=== PATIENT | female | born 1975 | race Hispanic/Latino ===

== ENCOUNTER 2022-03-13 09:06 | Inpatient (IN) | payer MEDICARE, OTHER ==
[2022-03-13 09:46] LABS: Actual Bicarbonate (HCO3v) 18 mEq/L (22-28); Analyzer IN Cardio ER; Base Excess -6.1 mEq/L (-2.0 to +3.0); Calcium, Ionized (venous) 0.86 mmol/L (1.16-1.32); Chloride (VBG) 107 mmol/L (98-106); Hemoglobin (Hb) 9.9 g/dL (11.7-16.0); Potassium (VBG) 5.01 mmol/L (3.70-5.30); Sodium 132.3 mmol/L (133-146)
[2022-03-13 10:03] LABS: #Basophils 0.1 thou/uL (0.0-0.2); #Eosinphils 0.1 thou/uL (0.0-0.7); #Lymphocytes 2.2 thou/uL (1.20-3.40); #Monocytes 1.4 thou/uL (0.11-0.59); #Neutrophils 9.1 thou/uL (1.40-6.50); %Basophils 0.4 % (0.0-1.0); %Eosinophils 0.8 % (0.0-10.0); %Lymphocytes 17.2 % (21.0-51.0); %Neutrophils 70.6 % (42.0-75.0); Hemoglobin 9.1 g/dL (12.0-16.0); Mean Corpuscular HGB CONC 33.5 g/dL (32.0-36.0); Mean Corpuscular Volume 89.7 fL (78.0-98.0); Platelet Count 297 thou/uL (130-400); RBC Distribution Width 13.8 % (11.5-14.5); Red Blood Cell (RBC) Count 3.03 mill/uL (4.20-5.40); White Blood Cell (WBC) Count 12.9 thou/uL (4.8-10.8)
[2022-03-13] MEDS ORDERED: cefTRIAXone\\ROCEPHIN 1 GM VIAL ONE (10:10)
[2022-03-13] MEDS ORDERED: Furosemide 40 MG/4 ML VIAL ONE (10:10)
[2022-03-13 10:28] LABS: ALT (SGPT) 11 U/L (8-55); AST (SGOT) 18 U/L (5-34); Albumin 3.4 g/dL (3.5-5.0); Alkaline Phosphatase 115 U/L (40-110); Anion Gap 17 mmol/L (10-20); BUN (Urea Nitrogen) 70 mg/dL (7.0-18.7); Bilirubin, Total 0.9 mg/dL (0.2-1.2); Calc. Creatinine Clearance 0 mL/min (70-130); Calcium 6.9 mg/dL (7.8-10.44); Carbon Dioxide 15 mmol/L (22-29); Chloride 106 mmol/L (98-107); Estimated GFR 9; Globulin 3.6 g/dL (2.4-3.5); Glucose 175 mg/dL (70-105); Sodium 133 mmol/L (136-145)
[2022-03-13 10:53] LABS: CKMB 1.1 ng/mL (0-6.6)
[2022-03-13 11:34] LABS: SARS-CoV-2 NAA Rapid Test Not Detected (NotDetected)
[2022-03-13] MEDS ORDERED: Aspirin Chewable 81 MG TAB ONE (14:41)
[2022-03-13] MEDS ORDERED: Insulin Regular 300 UNITS/3 ML VIAL SC PRN ×2 (15:33→15:41)
[2022-03-13] MEDS ORDERED: Calcium Carbonate 500 MG ChewTAB PO PRN (15:38)
[2022-03-13] MEDS ORDERED: Dextrose 5% in Water 1,000 ML IV PRN (15:41)
[2022-03-13] MEDS ORDERED: Dextrose 50% Abboject 50 ML SYRINGE SLOW IVP PRN (15:41)
[2022-03-13] MEDS ORDERED: Ondansetron PF 4 MG/2 ML Vial IVP PRN (15:45)
[2022-03-13] MEDS ORDERED: Acetaminophen 325 MG TAB PO PRN (15:45)
[2022-03-13] MEDS ORDERED: Ondansetron ODT 4 MG TAB SL PRN (15:45)
[2022-03-13] MEDS ORDERED: Cefepime 1 GM in Sodium Chloride 0.9% 100 ML IVPB SCH (16:00)
[2022-03-13 16:14] VITALS: BMI 45.8
[2022-03-13] MEDS ORDERED: Sodium Bicarbonate 150 MEQ in Sterile Water Injection 1,000 ML IV SCH (17:00)
[2022-03-13] MEDS ORDERED: Sodium Chloride 0.9% 500 ML IV SCH (17:15)
[2022-03-13 18:03] LABS: Anion Gap 18 mmol/L (10-20); BUN (Urea Nitrogen) 72 mg/dL (7.0-18.7); Calc. Creatinine Clearance 25 mL/min (70-130); Carbon Dioxide 15 mmol/L (22-29); Chloride 106 mmol/L (98-107); Estimated GFR 9; Glucose 158 mg/dL (70-105); Potassium 5.1 mmol/L (3.5-5.1); Sodium 134 mmol/L (136-145)
[2022-03-13 18:08] LABS: Troponin I 0.128 ng/mL (< 0.028)
[2022-03-13] MEDS ORDERED: hydrALAZINE 20 MG/ML VIAL SLOW IVP PRN (18:58)
[2022-03-13] MEDS: Carvedilol 6.25 MG TAB PO SCH (20:28)
[2022-03-13] MEDS: Calcium Carbonate 500 MG ChewTAB PO SCH (20:28)
[2022-03-13] MEDS: Doxycycline 100 MG CAP PO SCH (20:28)
[2022-03-13] MEDS: Heparin 5,000 UNITS/ML VIAL SC SCH (20:29)
[2022-03-13] MEDS: Escitalopram Oxalate 10 mg Tablet PO SCH (20:29)
[2022-03-13] MEDS ORDERED: Sodium Bicarbonate Tab 325 MG TAB PO SCH (21:00)
[2022-03-13] MEDS ORDERED: Famotidine 20 MG TAB PO SCH (21:00)
[2022-03-13 23:53] LABS: Bilirubin Negative (Negative); Blood, Urine Negative (Negative); Clarity Turbid (Clear); Glucose, Urine (Dipstick) Normal (Negative); Ketone, Urine Negative (Negative); Leukocyte Negative Leu/uL (Negative); Nitrite Negative (Negative); Protein, Urine (Dipstick) 200 mg/dL (Neg-Trace); Specific Gravity, Urine 1.013 (1.002-1.036); Urobilinogen Normal mg/dL (Less than 2); pH, Urine 5.5 (5.0-9.0)
[2022-03-14] LABS: Legionella Urinary Ag Negative (Negative); Strep pneumo Urine Ag NEGATIVE (NEGATIVE)
[2022-03-14 00:01] LABS: Yeast-Budding 2+ HPF (None Seen)
[2022-03-14 00:02] LABS: Bacteria/HPF 3+ HPF (None Seen)
[2022-03-14 00:03] LABS: RBC/HPF 0-3 HPF (0-3)
[2022-03-14 00:04] LABS: Urine Culture Reflex No No
[2022-03-14 00:08] LABS: Creatinine, Urine 85.9 mg/dL (47-110)
[2022-03-14 04:16] LABS: Albumin 3.1 g/dL (3.5-5.0); Anion Gap 18 mmol/L (10-20); BUN (Urea Nitrogen) 77 mg/dL (7.0-18.7); CRP (Inflammatory) 10.18 mg/dL (= or < 0.5); Calc. Creatinine Clearance 25 mL/min (70-130); Calcium 6.9 mg/dL (7.8-10.44); Carbon Dioxide 16 mmol/L (22-29); Chloride 106 mmol/L (98-107); Estimated GFR 9; Glucose 124 mg/dL (70-105); Phosphorus 6.1 mg/dL (2.3-4.7); Potassium 4.8 mmol/L (3.5-5.1); Sodium 135 mmol/L (136-145)
[2022-03-14 04:32] LABS: #Basophils 0.1 thou/uL (0.0-0.2); #Eosinphils 0.5 thou/uL (0.0-0.7); #Lymphocytes 2.3 thou/uL (1.20-3.40); #Neutrophils 5.7 thou/uL (1.40-6.50); %Basophils 0.9 % (0.0-1.0); %Eosinophils 5.6 % (0.0-10.0); %Lymphocytes 23.7 % (21.0-51.0); %Monocytes 10.2 % (0.0-10.0); %Neutrophils 59.7 % (42.0-75.0); Hemoglobin 8.7 g/dL (12.0-16.0); Mean Corpuscular HGB CONC 33.4 g/dL (32.0-36.0); Mean Corpuscular Hemoglobin 29.8 pg (27.0-31.0); Mean Corpuscular Volume 89.4 fL (78.0-98.0); Mean Platelet Volume 8.1 fL (7.4-10.4); Platelet Count 296 thou/uL (130-400); RBC Distribution Width 13.5 % (11.5-14.5); Red Blood Cell (RBC) Count 2.92 mill/uL (4.20-5.40); White Blood Cell (WBC) Count 9.5 thou/uL (4.8-10.8)
[2022-03-14] MEDS: Sevelamer Carbonate 800 MG TAB PO SCH ×3 (08:02→17:32)
[2022-03-14] MEDS: Doxycycline 100 MG CAP PO SCH ×2 (08:02→20:07)
[2022-03-14] MEDS: Aspirin 81 mg Enteric Coated Tablet PO SCH (08:03)
[2022-03-14] MEDS: Calcium Carbonate 500 MG ChewTAB PO SCH ×3 (08:03→20:07)
[2022-03-14] MEDS: Saccharomyces boulardii 250 MG CAP PO SCH (08:03)
[2022-03-14] MEDS: Carvedilol 6.25 MG TAB PO SCH ×2 (08:03→20:07)
[2022-03-14] MEDS: Heparin 5,000 UNITS/ML VIAL SC SCH ×2 (08:04→20:08)
[2022-03-14] MEDS: Sodium Bicarbonate 150 MEQ in Sterile Water Injection 1,000 ML IV SCH ×2 (08:48→20:06)
[2022-03-14] MEDS ORDERED: Ergocalciferol 1.25 MG(50,000 UNITS) CAP PO SCH (09:00)
[2022-03-14 11:19] LABS: Iron 39 ug/dL (50-170); Iron Binding Capacity, Total 180 mcg/dL (265-497)
[2022-03-14] MEDS: Cefepime 1 GM in Sodium Chloride 0.9% 100 ML IVPB SCH (13:43)
[2022-03-14] MEDS: Acetaminophen 325 MG TAB PO PRN ×2 (13:46→20:07)
[2022-03-14] MEDS ORDERED: Cefepime 1 GM in Sodium Chloride 0.9% 100 ML IVPB SCH (17:00)
[2022-03-14 18:53] LABS: Anion Gap 17 mmol/L (10-20); BUN (Urea Nitrogen) 75 mg/dL (7.0-18.7); Calc. Creatinine Clearance 26 mL/min (70-130); Calcium 6.8 mg/dL (7.8-10.44); Carbon Dioxide 20 mmol/L (22-29); Chloride 103 mmol/L (98-107); Estimated GFR 9; Glucose 130 mg/dL (70-105); Potassium 4.6 mmol/L (3.5-5.1); Sodium 135 mmol/L (136-145)
[2022-03-14] MEDS: Escitalopram Oxalate 10 mg Tablet PO SCH (20:07)
[2022-03-14 20:11] VITALS: BP 160/92
[2022-03-14] MEDS ORDERED: HYDROcodone/Acetaminophen 7.5/325 mg Tablet PO SCH (20:30)
[2022-03-15] MEDS: Cefepime 1 GM in Sodium Chloride 0.9% 100 ML IVPB SCH ×2 (01:06→15:24)
[2022-03-15] MEDS: Acetaminophen 325 MG TAB PO PRN ×2 (06:21→22:01)
[2022-03-15] MEDS: Saccharomyces boulardii 250 MG CAP PO SCH (07:26)
[2022-03-15] MEDS: Carvedilol 6.25 MG TAB PO SCH ×2 (07:27→21:59)
[2022-03-15] MEDS: Sevelamer Carbonate 800 MG TAB PO SCH ×3 (07:27→16:09)
[2022-03-15] MEDS: Doxycycline 100 MG CAP PO SCH ×2 (07:27→21:59)
[2022-03-15] MEDS: Aspirin 81 mg Enteric Coated Tablet PO SCH (07:27)
[2022-03-15] MEDS: Calcium Carbonate 500 MG ChewTAB PO SCH ×4 (07:28→22:09)
[2022-03-15] MEDS: Heparin 5,000 UNITS/ML VIAL SC SCH ×2 (07:28→21:59)
[2022-03-15 07:29] LABS: #Eosinphils 0.9 thou/uL (0.0-0.7); #Monocytes 0.7 thou/uL (0.11-0.59); #Neutrophils 4.1 thou/uL (1.40-6.50); %Basophils 0.4 % (0.0-1.0); %Eosinophils 11.1 % (0.0-10.0); %Lymphocytes 25.5 % (21.0-51.0); %Monocytes 9.2 % (0.0-10.0); %Neutrophils 53.8 % (42.0-75.0); Mean Corpuscular HGB CONC 33.5 g/dL (32.0-36.0); Mean Corpuscular Hemoglobin 29.8 pg (27.0-31.0); Platelet Count 289 thou/uL (130-400); RBC Distribution Width 13.7 % (11.5-14.5); Red Blood Cell (RBC) Count 2.68 mill/uL (4.20-5.40); White Blood Cell (WBC) Count 7.7 thou/uL (4.8-10.8)
[2022-03-15 07:46] LABS: Anion Gap 18 mmol/L (10-20); BUN (Urea Nitrogen) 70 mg/dL (7.0-18.7); BUN/Creatinine Ratio 13.89; Calc. Creatinine Clearance 28 mL/min (70-130); Calcium 6.5 mg/dL (7.8-10.44); Carbon Dioxide 21 mmol/L (22-29); Chloride 102 mmol/L (98-107); Estimated GFR 10; Glucose 128 mg/dL (70-105); Phosphorus 5.2 mg/dL (2.3-4.7); Potassium 4.4 mmol/L (3.5-5.1); Sodium 137 mmol/L (136-145)
[2022-03-15] MEDS ORDERED: Iron, Sodium Ferric Gluconate 250 MG in Sodium Chloride 0.9% 250 ML 250 ML IVPB SCH (08:15)
[2022-03-15] MEDS ORDERED: Epoetin (ESRD) 10,000 UNITS/ML VIAL SC SCH (09:00)
[2022-03-15] MEDS: Sodium Bicarbonate 150 MEQ in Sterile Water Injection 1,000 ML IV SCH ×2 (12:36→21:00)
[2022-03-15] MEDS: Cefdinir 300 MG CAP PO SCH (21:59)
[2022-03-15] MEDS: Escitalopram Oxalate 10 mg Tablet PO SCH (21:59)
[2022-03-15] MEDS ORDERED: Ondansetron PF 4 MG/2 ML Vial IVP PRN (23:47)
[2022-03-15] MEDS ORDERED: HYDROcodone/Acetaminophen 7.5/325 mg Tablet PO SCH (23:59)
[2022-03-16 04:02] LABS: #Eosinphils 0.7 thou/uL (0.0-0.7); #Lymphocytes 1.9 thou/uL (1.20-3.40); #Monocytes 0.7 thou/uL (0.11-0.59); #Neutrophils 4.9 thou/uL (1.40-6.50); %Basophils 0.4 % (0.0-1.0); %Eosinophils 8.5 % (0.0-10.0); %Lymphocytes 23.1 % (21.0-51.0); %Monocytes 8.5 % (0.0-10.0); %Neutrophils 59.5 % (42.0-75.0); Hemoglobin 8.1 g/dL (12.0-16.0); Mean Corpuscular HGB CONC 33.7 g/dL (32.0-36.0); Mean Corpuscular Hemoglobin 29.8 pg (27.0-31.0); Mean Corpuscular Volume 88.4 fL (78.0-98.0); Mean Platelet Volume 7.9 fL (7.4-10.4); Platelet Count 291 thou/uL (130-400); RBC Distribution Width 13.5 % (11.5-14.5); Red Blood Cell (RBC) Count 2.73 mill/uL (4.20-5.40); White Blood Cell (WBC) Count 8.2 thou/uL (4.8-10.8)
[2022-03-16 04:16] LABS: Albumin 3.1 g/dL (3.5-5.0); Anion Gap 11 mmol/L (10-20); BUN (Urea Nitrogen) 60 mg/dL (7.0-18.7); BUN/Creatinine Ratio 13.04; Calc. Creatinine Clearance 31 mL/min (70-130); Calcium 6.6 mg/dL (7.8-10.44); Carbon Dioxide 31 mmol/L (22-29); Chloride 98 mmol/L (98-107); Estimated GFR 11; Glucose 112 mg/dL (70-105); Phosphorus 4.8 mg/dL (2.3-4.7); Potassium 4.4 mmol/L (3.5-5.1); Sodium 136 mmol/L (136-145)
[2022-03-16] MEDS ORDERED: Sodium Chloride 0.9% 1,000 ML IV SCH (07:15)
[2022-03-16] MEDS: Sodium Bicarbonate 150 MEQ in Sterile Water Injection 1,000 ML IV SCH (08:22)
[2022-03-16] MEDS: Doxycycline 100 MG CAP PO SCH (08:54)
[2022-03-16] MEDS: Aspirin 81 mg Enteric Coated Tablet PO SCH (08:55)
[2022-03-16] MEDS: Cefdinir 300 MG CAP PO SCH (08:55)
[2022-03-16] MEDS: Calcium Carbonate 500 MG ChewTAB PO SCH ×2 (08:55→13:45)
[2022-03-16] MEDS: Saccharomyces boulardii 250 MG CAP PO SCH (08:55)
[2022-03-16] MEDS: Carvedilol 6.25 MG TAB PO SCH (08:55)
[2022-03-16] MEDS: Sevelamer Carbonate 800 MG TAB PO SCH ×2 (08:55→11:54)
[2022-03-16] MEDS: Heparin 5,000 UNITS/ML VIAL SC SCH (08:56)
[2022-03-16] MEDS ORDERED: Calcium Chloride 13.6 MEQ in Sodium Chloride 0.9% 100 ML IVPB SCH (12:45)
[2022-03-19 10:54] VITALS: TEMP 97.9
== END 2022-03-16 16:35 | disposition home or self-care (01) | DRG 871 ==
LOC: ERS 09:06 → IMCU/EMU 15:10
PROVIDERS: ADMIT Internal Medicine; ATTEND Internal Medicine
PROC: 3E03329 Introduction of Other Anti-infective into Peripheral Vein, Percutaneous Approach (ICD-10-PCS; principal; 2022-03-13)
PROC: 5A09357 Assistance with Respiratory Ventilation, Less than 24 Consecutive Hours, Continuous Positive Airway Pressure (ICD-10-PCS; 2022-03-13)
DX: A41.9 Sepsis, unspecified organism (principal); Z20.822 Contact with and (suspected) exposure to COVID-19; J18.9 Pneumonia, unspecified organism; J96.01 Acute respiratory failure with hypoxia; N18.5 Chronic kidney disease, stage 5; I12.0 Hypertensive chronic kidney disease with stage 5 chronic kidney disease or end stage renal disease; Z68.42 Body mass index [BMI] 45.0-49.9, adult; N17.9 Acute kidney failure, unspecified; E87.20 Acidosis, unspecified; E87.1 Hypo-osmolality and hyponatremia; E11.22 Type 2 diabetes mellitus with diabetic chronic kidney disease; E66.01 Morbid (severe) obesity due to excess calories; K21.9 Gastro-esophageal reflux disease without esophagitis; I25.10 Atherosclerotic heart disease of native coronary artery without angina pectoris; G89.4 Chronic pain syndrome; E78.5 Hyperlipidemia, unspecified; F41.9 Anxiety disorder, unspecified; E55.9 Vitamin D deficiency, unspecified; R65.20 Severe sepsis without septic shock; R79.89 Other specified abnormal findings of blood chemistry; D63.1 Anemia in chronic kidney disease; M19.90 Unspecified osteoarthritis, unspecified site; F32.A Depression, unspecified; G43.909 Migraine, unspecified, not intractable, without status migrainosus; E86.9 Volume depletion, unspecified; Z98.890 Other specified postprocedural states; Z82.3 Family history of stroke; Z81.8 Family history of other mental and behavioral disorders; Z79.4 Long term (current) use of insulin; Z88.6 Allergy status to analgesic agent; Z88.5 Allergy status to narcotic agent; Z79.899 Other long term (current) drug therapy; Z79.82 Long term (current) use of aspirin; Z90.49 Acquired absence of other specified parts of digestive tract; Z98.51 Tubal ligation status; Z82.49 Family history of ischemic heart disease and other diseases of the circulatory system; Z83.3 Family history of diabetes mellitus; Z90.710 Acquired absence of both cervix and uterus
CPT/HCPCS: 36415; 36416; 71045; 71250; 80053; 80069; 81001; 82306; 82553; 82570; 82728; 82805; 83540; 83550; 83605; 83880; 84145; 84156; 84300; 84484; 84540; 85025; 85379; 86140; 87040; 87449; 87804; 87899; 93005; 93306; 94640; 94660; 96365; 96375; A4217; J0692; J0696; J1644; J1940; J3490; J7030; J7050; J7620; Q4081; U0002

== ENCOUNTER 2022-06-05 06:48 | Day surgery (SDC) | payer OTHER, MEDICAID ==
[2022-05-17 11:39] VITALS: BMI 43.5
[~2022-06-05 06:48] MED LIST: EPINEPHrine 0.3 MG in Ophthalmic Irrigation Solution 500 ML IRR SCH; Fentanyl 100 MCG/2 ML VIAL ONE; Midazolam HCl 2 mg/2 ml Vial ONE; PROPOFOL 0 ML ONE
[2022-06-05] MEDS ORDERED: Phenylephrine 2.5% Ophth Soln 5 ML BOT ONE (07:04)
[2022-06-05] MEDS ORDERED: Cyclopentolate 1% Opth Drop 2 ML BOT ONE (07:04)
[2022-06-05] MEDS ORDERED: Midazolam HCl 2 mg/2 ml Vial ONE (07:10)
[2022-06-05] MEDS ORDERED: PROPOFOL 20 ML ONE (07:10)
[2022-06-05] MEDS ORDERED: Fentanyl 100 MCG/2 ML VIAL ONE (07:10)
[2022-06-05] MEDS ORDERED: Bupivacaine 0.75% 10 ML VIAL ONE (07:50)
[2022-06-05] MEDS ORDERED: CEFAZOLIN 1 GM VIAL ONE (07:50)
[2022-06-05] MEDS ORDERED: Triamcinolone 40 MG/ML VIAL ONE (07:50)
[2022-06-05] MEDS ORDERED: Lidocaine 1% PF 5 ML VIAL ONE (07:50)
== END 2022-06-05 09:10 | disposition home or self-care (01) ==
LOC: SDC 06:48
PROVIDERS: ATTEND Ophthalmology Retina Specialist
PROC: 08T53ZZ Resection of Left Vitreous, Percutaneous Approach (ICD-10-PCS; principal; 2022-06-05)
PROC: 08QF3ZZ Repair Left Retina, Percutaneous Approach (ICD-10-PCS; 2022-06-05)
DX: H43.12 Vitreous hemorrhage, left eye (principal); E11.3592 Type 2 diabetes mellitus with proliferative diabetic retinopathy without macular edema, left eye; Z79.4 Long term (current) use of insulin; Z79.82 Long term (current) use of aspirin; Z79.899 Other long term (current) drug therapy; Z88.5 Allergy status to narcotic agent; Z88.6 Allergy status to analgesic agent
CPT/HCPCS: J0171; J0690; J2250; J2704; J3010; J3301; J3490